=== PATIENT | male | born 1980 | race Caucasian/White ===

== ENCOUNTER 2019-02-17 16:26 | Emergency (ER) | payer SELFPAY ==
[~2019-02-17] VITALS: Ht 170.2 cm; Wt 84.0 kg
[2019-02-17 16:49] VITALS: BP 135/74; PULSE 88; RESP 18; Ht 170.2 cm; Wt 84.0 kg
== END 2019-02-17 20:52 | disposition left against medical advice (07) ==
LOC: FTE 16:26
DX: Z53.21 Procedure and treatment not carried out due to patient leaving prior to being seen by health care provider (principal)

== ENCOUNTER 2019-06-24 09:58 | Emergency (ER) | payer OTHER ==
[~2019-06-24] VITALS: Ht 167.6 cm; Wt 77.1 kg
[2019-06-24 10:01] VITALS: BP 120/73; PULSE 64; RESP 20; Ht 167.6 cm; Wt 77.1 kg
--- NOTE | 2019-06-24 11:06 | ERD ---
ER Documentation Chief Complaint Chief Complaint laceration @ chin area HPI 39-year-old male presents with laceration under his chin that occurred today when he had a mechanical trip and fall. His tetanus vaccination is up-to-date. No loss of consciousness. No vomiting. ROS All systems reviewed and are negative except as per history of present illness. Medications Home Meds Reported Medications [None] No Conflict Check 12/27/10 Allergies Allergies: Coded Allergies: No Known Drug Allergies (Verified Allergy, Mild, 02/01/13) PMhx/Soc History of Surgery: No Anesthesia Reaction: No Hx Neurological Disorder: Yes (SEIZURES) Hx Respiratory Disorders: No Hx Cardiac Disorders: No Hx Psychiatric Problems: No Hx Miscellaneous Medical Probl: No Hx Alcohol Use: No Hx Substance Use: Yes (MARIJUANA) Hx Tobacco Use: No Smoking Status: Never smoker FmHx Family History: No diabetes Physical Exam Vitals Vital Signs Date Temp Pulse Resp B/P (MAP) Pulse Ox O2 O2 Flow FiO2 Time Delivery Rate 06/24/19 98.4 64 20 120/73 96 10:01 (89) Physical Exam Const: No acute distress Head: Atraumatic Eyes: Normal Conjunctiva ENT: Normal External Ears, Nose and Mouth. Neck: Full range of motion. No meningismus. Resp: Clear to auscultation bilaterally Cardio: Regular rate and rhythm, no murmurs Skin: 1 inch chin laceration Procedures/MDM Laceration Repair by me: Anesthesia: 1% lidocaine locally Location: Chin Tendon/Joint/Nerves: No injury Foreign body: None detected after copious irrigation and exploration Technique: Simple Interrupted Sutures Complexity: No subcutaneous sutures/mucosal repair/edge excision Post Closure Length: 2cm Patient's bleeding was easily controlled in the department and there is no indication of anemia. No evidence of compartment syndrome, neurologic injury, vascular injury, open joint, tendon laceration, or foreign body. Patient is appropriate for outpatient follow up. 48 hour wound check. Scar minimization instructions given. Patient counseled regarding my diagnostic impression and care plan. Prior to discharge all questions answered. Pt agrees with treatment plan and understands strict return precautions. Pt is instructed to follow up with primary care provider within 24-48 hours. Precautionary instructions provided including instructions to return to the ER if not improving or for any worsening or changing symptoms or concerns. Departure Diagnosis: Primary Impression: Laceration Condition: Stable Patient Instructions: Laceration, Face (Suture Or Tape) Additional Instructions: Follow up in 2 days in your clinic for wound check. Follow up with your physician to remove the stitches:For Face wounds 5-7 days.For Elsewhere on the body 7-10 days. SREEKANTH GUARDADO PA-C Jun 24, 2019 11:06
== END 2019-06-24 11:14 | disposition home or self-care (01) ==
LOC: FTE 09:58
DX: S01.81XA Laceration without foreign body of other part of head, initial encounter (principal); W01.0XXA Fall on same level from slipping, tripping and stumbling without subsequent striking against object, initial encounter; Y92.9 Unspecified place or not applicable